=== PATIENT | female | born 1990 | race Native Hawaiian/Other Pacific Islander ===

== ENCOUNTER 2021-10-13 21:18 | Emergency (ER) | payer BC ==
--- NOTE | 2021-10-13 21:57 | XRay Report ---
CHEST 2 VIEWS INDICATION / CLINICAL INFORMATION: CHEST PAIN. COMPARISON: None available. FINDINGS: SUPPORT DEVICES: None. HEART / MEDIASTINUM: No significant abnormality. LUNGS / PLEURA: No significant pulmonary or pleural abnormality. No pneumothorax. ADDITIONAL FINDINGS: No significant additional findings. IMPRESSION: 1. No acute findings. Signer Name: Jose Montana MD Signed: 10/13/2021 9:53 PM Workstation Name: [id number]
[2021-10-13] MEDS ORDERED: ASPIRIN 81 MG TAB CHEW PO ONE (23:00)
[2021-10-13] MEDS ORDERED: FAMOTIDINE 20 MG TAB PO ONE (23:00)
[2021-10-13 23:17] LABS: Basophils # (Auto) 0.1 K/mm3 (0.0-0.1); Basophils % (Auto) 0.9 % (0.0-1.8); Eosinophils # (Auto) 0.2 K/mm3 (0.0-0.4); Eosinophils % (Auto) 1.7 % (0.0-4.3); Hematocrit 38.1 % (30.3-42.9); Hemoglobin 12.3 gm/dl (10.1-14.3); Lymphocytes # (Auto) 3.6 K/mm3 (1.2-5.4); Lymphocytes % (Auto) 33.9 % (13.4-35.0); Mean Corpuscular HGB Conc 32 % (30-34); Mean Corpuscular Volume 77 fl (79-97); Monocytes # (Auto) 0.7 K/mm3 (0.0-0.8); Monocytes % (Auto) 6.3 % (0.0-7.3); Platelet Count 230 K/mm3 (140-440); Red Blood Count 4.97 M/mm3 (3.65-5.03); Red Cell Distribution Width 16.1 % (13.2-15.2)
[2021-10-13 23:38] LABS: Alanine Aminotransferase 19 units/L (7-56); Albumin 4.3 g/dL (3.9-5); Blood Urea Nitrogen 11 mg/dL (7-17); Calcium 9.1 mg/dL (8.4-10.2); Hemolysis Index 11
[2021-10-13 23:41] LABS: BUN/Creatinine Ratio 18
--- NOTE | 2021-10-14 01:55 | Emergency Department Report ---
ED Chest Pain HPI - General Chief Complaint: Chest Pain Stated Complaint: CHEST PAIN Source: patient Mode of arrival: Ambulatory Limitations: No Limitations - History of Present Illness Initial Comments: Patient is a 31-year-old female with no past medical history who presents to the ED with complaint of acute onset persistent substernal chest pain which she describes as burning, sharp and pressure for the last 12 hours constantly. Patient states that the pain has been constant and persistent and is worsened with food. Patient denies nausea and vomiting, dizziness, syncope, shortness of breath, fever, chills, cough, abdominal pain, hemoptysis, hematemesis, diarrhea, traumatic injury, heavy lifting, numbness and tingling or weakness of upper extremities bilaterally or neck pain. MD Complaint: chest pain (substernal) -: Sudden, hour(s) (12) Onset: after eating, awoke with symptoms Pain Location: substernal, left chest Pain Radiation: none Severity: severe Severity scale (0 -10): 8 Quality: aching, sharp Consistency: constant Improves With: nothing Worsens With: nothing re: denies: nausea, vomting, diaphoresis, dyspnea, sense of impending doom, other Other Symptoms: denies: cough, fever, syncope, rash, acid taste in mouth, palpitations, burping, other Treatments Prior to Arrival: none - Related Data On Oral Contraceptives: No Previous Rx's Medication Instructions Recorded Last Taken Type Famotidine [Pepcid] 20 mg PO BID #60 tablet 10/14/21 Unknown Rx Naproxen 500 mg PO Q12H PRN #30 tab 10/14/21 Unknown Rx Allergies Allergy/AdvReac Type Severity Reaction Status Date / Time No Known Allergies Allergy Verified 10/13/21 21:22 Heart Score - HEART Score History: Slightly suspicious EKG: Normal Age: < 45 Risk factors: No known risk factors Troponin: < normal limit HEART Score: 0 - EKG Read Time Time EKG Completed: 21:25 EKG Read Time: 21:30 - Critical Actions Critical Actions: 0-3 pts:0.9-1.7%risk of adverse cardiac event.Candidate for discharge ED Review of Systems ROS: Stated complaint: CHEST PAIN Other details as noted in HPI Constitutional: denies: chills, fever Eyes: denies: eye pain, eye discharge, vision change ENT: denies: ear pain, throat pain Respiratory: denies: cough, shortness of breath, wheezing Cardiovascular: chest pain. denies: palpitations Endocrine: no symptoms reported Gastrointestinal: denies: abdominal pain, nausea, diarrhea Genitourinary: denies: urgency, dysuria, discharge Musculoskeletal: denies: back pain, joint swelling, arthralgia Skin: denies: rash, lesions Neurological: denies: headache, weakness, paresthesias Psychiatric: denies: anxiety, depression Hematological/Lymphatic: denies: easy bleeding, easy bruising ED Past Medical Hx - Medications Home Medications: Home Medications Medication Instructions Recorded Confirmed Last Taken Type Famotidine [Pepcid] 20 mg PO BID #60 tablet 10/14/21 Unknown Rx Naproxen 500 mg PO Q12H PRN #30 tab 10/14/21 Unknown Rx ED Physical Exam - General Limitations: No Limitations General appearance: alert, in no apparent distress - Head Head exam: Present: atraumatic, normocephalic, normal inspection - Eye Eye exam: Present: normal appearance, PERRL, EOMI Pupils: Present: normal accommodation - ENT ENT exam: Present: normal exam, normal orophraynx, mucous membranes moist, TM's normal bilaterally, normal external ear exam - Neck Neck exam: Present: normal inspection, full ROM. Absent: tenderness - Respiratory Respiratory exam: Present: normal lung sounds bilaterally. Absent: respiratory distress, wheezes, rales, rhonchi, stridor, chest wall tenderness, accessory muscle use, decreased breath sounds, prolonged expiratory - Cardiovascular Cardiovascular Exam: Present: regular rate, normal rhythm, normal heart sounds. Absent: systolic murmur, diastolic murmur, rubs, gallop - GI/Abdominal GI/Abdominal exam: Present: soft, normal bowel sounds. Absent: distended, tenderness, guarding, rebound, hyperactive bowel sounds, hypoactive bowel sounds, organomegaly, mass - Extremities Exam Extremities exam: Present: normal inspection, full ROM, normal capillary refill. Absent: tenderness, pedal edema, joint swelling - Back Exam Back exam: Present: normal inspection, full ROM. Absent: tenderness, CVA tenderness (R), muscle spasm, paraspinal tenderness, vertebral tenderness - Neurological Exam Neurological exam: Present: alert, oriented X3, CN II-XII intact, normal gait, reflexes normal - Psychiatric Psychiatric exam: Present: normal affect, normal mood - Skin Skin exam: Present: warm, dry, intact, normal color. Absent: rash ED Course Vital Signs 10/13/21 10/14/21 21:21 02:47 Temperature 98.3 F Pulse Rate 85 84 Respiratory 18 16 Rate Blood Pressure 133/86 Blood Pressure 132/86 [Left] O2 Sat by Pulse 99 100 Oximetry TUNG score - Tung Score Age > 65: (0) No Aspirin use within the Past 7 Days: (0) No 3 or more CAD Risk Factors: (0) No 2 or more Angina events in past 24 hrs: (0) No Known CAD with more than 50% Stenosis: (0) No Elevated Cardiac Markers: (0) No ST Deviation Greater than 0.5mm: (0) No TUNG Score: 0 ED Medical Decision Making - Lab Data Result diagrams: 10/13/21 22:56 10/13/21 22:56 - EKG Data EKG shows normal: sinus rhythm Rate: normal - EKG Data Interpretation: normal EKG 10/19/21 08:29 EKG showed normal sinus rhythm with a ventricular rate of [address] or T wave abnormalities. - Radiology Data Radiology results: report reviewed, image reviewed [facility] [address] [place] [address] XRay Report Signed Patient: DOUGIE CANDELARIA MR#: [id number] 16 : 1990 Acct:[id number] Age/Sex: 31 / F ADM Date: 10/13/21 Loc: ED Attending Dr: Ordering Physician: ED MD KEAGAN Date of Service: 10/13/21 Procedure(s): XR chest routine 2V Accession Number(s): [id number] cc: ED MD KEAGAN Fluoro Time In Minutes: CHEST 2 VIEWS INDICATION / CLINICAL INFORMATION: CHEST PAIN. COMPARISON: None available. FINDINGS: SUPPORT DEVICES: None. HEART / MEDIASTINUM: No significant abnormality. LUNGS / PLEURA: No significant pulmonary or pleural abnormality. No pneumothorax. ADDITIONAL FINDINGS: No significant additional findings. IMPRESSION: 1. No acute findings. Signer Name: Jose Montana MD Signed: 10/13/2021 9:53 PM Workstation Name: [id number] Transcribed By: MAXIMO Dictated By: Jose Montana MD Electronically Authenticated By: Jose Montana MD Signed Date/Time: 10/13/212152 DD/ 52 TD/TT: - Medical Decision Making This is a 31-year-old female with no past medical history who presents to the ED with complaint of acute onset persistent substernal chest pain which she describes as burning, sharp and pressure for the last 12 hours constantly. Patient states that the pain has been constant and persistent and is worsened with food. In the ED, patient is alert and oriented x3 and is not in any distress. Patient is hemodynamically stable. EKG shows normal sinus rhythm with a ventricular rate of [address] or T wave abnormality. Chest x-ray showed no acute cardiopulmonary abnormalities or pneumonitis. All lab test resu lts were reviewed and are all nonactionable. Patient's heart score is 0 and patient is PERC negative per Wells criteria. Patient was treated for pain in the ED and also given antacids. Patient was also treated with antiemetics. On reevaluation, patient felt better, patient vital signs are stable, patient was discharged home on medications and advised to follow-up with her primary care physician in 7 to 10 days for reevaluation or return to the ED immediately if symptoms get worse. - Differential Diagnosis ACS; GERD; costochondritis; PE; dissection; pneumonia; muscle strain Critical care attestation.: If time is entered above; I have spent that time in minutes in the direct care of this critically ill patient, excluding procedure time. ED Disposition Clinical Impression: Acute nonspecific chest pain with low risk of coronary artery disease, Acute costochondritis Disposition: 01 HOME / SELF CARE / HOMELESS Is pt being admited?: No Does the pt Need Aspirin: No Condition: Stable Instructions: Costochondritis, [id number], Chest Wall Pain, [id number], Nonspecific Chest Pain, Adult, [id number], Chest Pain (ED) Additional Instructions: All lab test results were reviewed and are all nonactionable. Chest x-ray showed no acute cardiopulmonary abnormalities or pneumonitis. Symptoms are likely musculoskeletal of the chest wall. Therefore take medication with food, drink plenty of fluids follow-up with your primary care physician in 7 to 10 days. Return to the ED immediately if symptoms get worse. Prescriptions: Naproxen 500 mg PO Q12H PRN #30 tab PRN Reason: Pain , Severe (7-10) Famotidine [Pepcid] 20 mg PO BID #60 tablet Referrals: [facility] [Provider Group] - 7-10 days Time of Disposition: 01:52 Print Language: SPANISH
[2021-10-14 02:48] VITALS: BP 132/86
--- NOTE | 2021-10-16 10:10 | Electrocardiograph Report ---
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
== END 2021-10-14 02:48 | disposition home or self-care (01) ==
LOC: ED 21:18
DX: R07.9 Chest pain, unspecified (principal); M94.0 Chondrocostal junction syndrome [Tietze]
CPT/HCPCS: 36415; 71046; 80053; 84484; 85025; 93005; 99283; 99284